=== PATIENT | female | born 1950 | race Caucasian/White ===

== ENCOUNTER → 2024-12-22 | Outpatient (CLI) | payer MEDICARE, SELFPAY ==
--- NOTE | 2024-12-22 17:02 | XR_ITS ---
Examination: Abdomen AP single view Technique: AP portable supine abdomen, single view Exam date and time: December 22, 2024 1759 hours INDICATIONS: Abdominal pain beginning July 2024 FINDINGS: Moderate stool throughout the colon No obstruction 11 mm calcific density in the upper right pelvis No free air Mild lumbar levoscoliosis IMPRESSION: 11 mm calcification in the upper right pelvis, recommend pelvic sonography follow-up Moderate stool throughout the colon
== END | disposition home or self-care (01) ==
PROVIDERS: PCP Specialist; Referring Provider Specialist; Visit Provider Specialist
DX: N94.89 Other specified conditions associated with female genital organs and menstrual cycle (principal); K59.00 Constipation, unspecified
CPT/HCPCS: 74018

== ENCOUNTER 2025-09-14 10:05 | Day surgery (SDC) | payer MEDICARE, SELFPAY ==
[2025-09-11 15:14] VITALS: BMI 30.7
[2025-09-14] VITALS (9 sets, daily range): BP systolic 136–184; BP diastolic 71–98; PULSE 57–84; RESP 8–19; TEMP 36.3; O2SAT 92–100; BMI 31.4
[2025-09-14] MEDS: SODIUM CHLORIDE 0.9% 500 ML 500 ML 20 ML IV (12:02)
[2025-09-14] MEDS: ONDANSETRON INJ 2 MG/ML INJ 2 ML 4 MG IVP (12:04)
[2025-09-14] MEDS: BENZOCAINE 20% (Hurricaine) SPRAY 1 DOSE TOP (12:05)
[2025-09-14] MEDS: fentaNYL CIT INJ 50 mCg/ML AMP 2ML (ASD USE ONLY) IVP (12:05)
[2025-09-14] MEDS: MIDAZOLAM INJ 1 MG/ML VIAL 2 ML (ASD USE ONLY) 2 MG IVP (12:08)
== END 2025-09-14 13:04 | disposition home or self-care (01) ==
PROVIDERS: PCP Specialist; Referring Provider Specialist; Visit Provider Specialist
PROC: (CPT 43239; principal; 2025-09-14 13:15)
DX: K22.10 Ulcer of esophagus without bleeding (principal); K29.50 Unspecified chronic gastritis without bleeding
CPT/HCPCS: 43239; A4649; J1200; J2250; J2405; J3010; J7999; A9270